=== PATIENT | male | born 1950 | race Caucasian/White ===

== ENCOUNTER 2022-04-10 05:09 | Emergency (ER) | payer OTHER ==
[~2022-04-10] VITALS: Ht 172.7 cm; Wt 54.9 kg
[2022-04-10] MEDS ORDERED: ASPI81TA31 PO (05:17)
[2022-04-10] MEDS ORDERED: METO-356 PO (05:17)
--- NOTE | 2022-04-10 05:20 | NUR ---
Patient BIB RA for c/o irregular heart rate/palpitations. A/Ox4, speech is clear speaks in complete sentences. No acute/focal neuro deficits. Denies any CP, however endorses mild dyspnea without evidence of increased work of breathing. +nausea, denies vomiting, diarrhea, constipation or abdominal pain.
[2022-04-10] MEDS ORDERED: ONDANSETRON 4 MG/2 ML VIAL IV ONE (05:45)
[2022-04-10] MEDS ORDERED: IV NORMAL SALINE 500 ML IV ONE (05:45)
[2022-04-10 05:57] LABS: HEMATOCRIT 42.1 % (36.7-47.1); MEAN CORPUSCULAR HEMOGLOBIN 31.6 uug (23.8-33.4); MEAN CORPUSCULAR VOLUME 94.6 fL (73.0-96.2); PLATELET COUNT (AUTO) 130 K/uL (152-348)
[2022-04-10 06:17] LABS: ALANINE AMINOTRANSFERASE 26 U/L (16-63); ALKALINE PHOSPHATASE 43 U/L (50-136); ASPARTATE AMINOTRANSFERASE 23 U/L (15-37); BILIRUBIN,DIRECT 0.1 mg/dL (0.0-0.2); BILIRUBIN,TOTAL 0.4 mg/dL (0.2-1.0); CARBON DIOXIDE 28 mmol/L (21-32); CHLORIDE 104 mmol/L (98-107); CREATININE 0.9 mg/dL (0.6-1.3); GLUCOSE 93 mg/dL (74-106); TOTAL PROTEIN, SERUM 6.6 g/dL (6.4-8.2); UREA NITROGEN, BLOOD 28 mg/dL (7-18)
[2022-04-10] MEDS ORDERED: ONDANSETRON 4 MG/2 ML VIAL ONE (06:24)
--- NOTE | 2022-04-10 06:32 | NUR ---
Patient ambulated to the bathroom with steady gait.
[2022-04-10] MEDS ORDERED: MAGNESIUM SULFATE/D5W 200 ML ONE (06:48)
[2022-04-10] MEDS: MAGNESIUM SULFATE/D5W 100 ML IV SCH (06:56)
[2022-04-10] MEDS ORDERED: IV NORMAL SALINE 1000 ML BAG IV ONE (07:15)
== END 2022-04-10 08:52 | disposition home or self-care (01) ==
LOC: ER 05:15
DX: R06.02 Shortness of breath (principal); I48.0 Paroxysmal atrial fibrillation; E86.0 Dehydration; D69.6 Thrombocytopenia, unspecified; Z79.899 Other long term (current) drug therapy; Z79.82 Long term (current) use of aspirin
CPT/HCPCS: 99285; 96365; 71045; 96366; 96375; 80076; 80048; 83880; 83735; 85025; 84484 ×2; 36415; 93005 ×2; 83605; J3475; J2405; J7040; A4663